=== PATIENT | male | born 1995 | race Hispanic/Latino ===

== ENCOUNTER 2019-03-30 15:25 | Emergency (ER) | payer OTHER ==
[2019-03-30] MEDS ORDERED: KETOROLAC TROMETHAMINE 60 MG/2 ML VIAL ONE (15:45)
[2019-03-30] MEDS ORDERED: TETANUS/DIPHTHERIA TOXOID [ADULT] 0.5 ML VIAL IM ONE (15:46)
== END 2019-03-30 17:08 | disposition home or self-care (01) ==
LOC: EDH 15:25
DX: S80.811A Abrasion, right lower leg, initial encounter (principal); M25.571 Pain in right ankle and joints of right foot; Z72.0 Tobacco use; V57.5XXA Driver of pick-up truck or van injured in collision with fixed or stationary object in traffic accident, initial encounter; Y93.89 Activity, other specified; Y92.89 Other specified places as the place of occurrence of the external cause; Y99.8 Other external cause status
CPT/HCPCS: 29515; 73590; 73610; 90471; 90714; 96372; 99284; J1885